=== PATIENT | male | born 2000 ===

== ENCOUNTER 2024-02-29 14:15 | Emergency (ER) | payer SELFPAY ==
[2024-02-29 14:21] VITALS: BP 131/67; PULSE 45; TEMP 37.2; O2SAT 100; BMI 29.3
--- NOTE | 2024-02-29 14:36 | US_ITS ---
[address] [address] Patient Name: ALMA GLASER MRN: [id number] date: 2000 Sex: M Assigned Patient Location: ER Current Patient Location: ER Accession/Order Number: [id number] Exam Date: 02/29/2024 14:40 Report Date: 02/29/2024 15:23 At the request of: FOSTER RLAPH Procedure: US scrotum doppler EXAM: US scrotum doppler HISTORY: Left testicular pain COMPARISON: None. TECHNIQUE: Grayscale, color and Doppler FINDINGS: The right testicle is normal in size, contour and echotexture measuring 4.5 x 2.9 x 2.2 cm. Normal color and Doppler flow. Punctate calcifications, testicular microlithiasis The right epididymis is normal No right hydrocele or varicocele. The left testicle is normal in size, contour and echotexture measuring 4.8 x 3.1 x 2.1 cm. Normal color and Doppler flow. Punctate calcifications, testicular microlithiasis The left epididymis is normal No left hydrocele or varicocele US/US scrotum doppler IMPRESSION: No acute abnormality. Electronically authenticated by: KENJI RODRIGUEZ Date: 02/29/2024 15:23
--- NOTE | 2024-02-29 14:37 | ED_ITS ---
HPI - Male Genitourinary General Chief complaint: Urogenital-Male Stated complaint: ABDOMINAL PAIN Time Seen by Provider: 02/29/24 14:36 Source: patient Mode of arrival: walk-in Limitations: no limitations History of Present Illness HPI Narrative: 23 year old male presents to the ED for left testicular pain. It has been intermittent for the past month. Reports intermittent swelling. Denies fever, chills, injury, dysuria, hematuria. Denies penile discharge, lesions, rash. Reports lower abdominal discomfort last night. Denies N/V/D. Related Data Home Medications ?Medication ?Instructions ?Recorded ?Confirmed No Known Home Medications 02/29/24 02/29/24 Allergies Allergy/AdvReac Type Severity Reaction Status Date / Time No Known Drug Allergies Allergy Verified 02/29/24 14:26 Review of Systems ROS Constitutional Denies: fever or chills Cardiovascular Denies: chest pain Respiratory Denies: shortness of breath Gastrointestinal Reports: abdominal pain; Denies: nausea, vomiting, diarrhea or constipation Genitourinary Reports: genital pain, testicular pain and scrotal swelling; Denies: painful urination, urinary frequency, urinary urgency, blood in urine, genital lesion, penile discharge, testicular mass or difficulty urinating Musculoskeletal Denies: back pain Integumentary/Breast Denies: rash, itching, sores or new lesion PFSH PFSH Medical History (Updated 02/29/24 @ 15:33 by Vikki Mederos) No pertinent past medical history ?Z78.9 - Other specified health status (ICD-10) Surgical History (Updated 02/29/24 @ 14:46 by Rolf Brizuela) No pertinent past surgical history ?Z78.9 - Other specified health status (ICD-10) Exam Narrative Exam Narrative: Rolf BRIDGES at bedside for patient support partner Constitutional Vital Signs, click to edit/add: Last Vital Signs Temp 98.9 F 02/29/24 14:21 Pulse 45 L 02/29/24 14:21 Resp 20 02/29/24 14:21 BP 131/67 02/29/24 14:21 Pulse Ox 100 02/29/24 14:21 Common normals: no apparent distress and oriented x3 General appearance: cooperative Eye Common normals: conjunctivae normal Neck & C-Spine Common normals: supple Respiratory Common normals: normal respiratory effort Effort & inspection: able to speak in complete sentences and symmetric chest movement Cardio Common normals: regular rate GI Common normals: soft to palpation and non-tender Course Vital Signs Vital signs: Vital Signs Temperature 98.9 F 02/29/24 14:21 Pulse Rate 45 L 02/29/24 14:21 Respiratory Rate 20 02/29/24 14:21 Blood Pressure 131/67 02/29/24 14:21 Pulse Oximetry 100 02/29/24 14:21 Temperature 98.9 F 02/29/24 14:21 Pulse Rate 45 L 02/29/24 14:21 Respiratory Rate 20 02/29/24 14:21 Blood Pressure 131/67 02/29/24 14:21 Pulse Oximetry 100 02/29/24 14:21 MDM - Male Genitourinary MDM Narrative Medical decision making narrative: Urinalysis was unremarkable. CBC and BMP were unremarkable. Ultrasound showed no acute findings. Uriprobes were pending. Findings were discussed. He was encouraged to follow up with urology for a recheck, further evaluation and treatment. Medical Records Attestation: I reviewed the patient's medical records. Lab Data Attestation: I reviewed the patient's lab results. Labs: Lab Results 02/29/24 02/29/24 Range/Units 14:35 14:42 WBC 9.0 (4.0-11.0) 10^3/uL RBC 5.37 (4.70-6.10) 10^6/uL Hgb 16.1 (14.0-18.0) g/dL Hct 45.7 (42.0-54.0) % MCV 85.1 (80.0-94.0) fL MCH 30.0 (25.9-34.0) pg MCHC 35.2 (29.9-35.2) g/dL RDW 12.9 (11.0-15.0) % Plt Count 223 (150-450) 10^3/uL MPV 11.3 (9.5-13.5) fL Neut % (Auto) 45.3 (43.0-75.0) % Lymph % (Auto) 40.3 (20.5-60.0) % Pershing % (Auto) 10.2 (1.7-12.0) % Eos % (Auto) 3.5 (0.9-7.0) % Baso % (Auto) 0.6 (0.2-2.0) % Neut # (Auto) 4.1 (1.4-6.5) 10^3/uL Lymph # (Auto) 3.6 (1.2-3.8) 10^3/uL Pershing # (Auto) 0.9 H (0.3-0.8) 10^3/uL Eos # (Auto) 0.3 (0.0-0.7) 10^3/uL Baso # (Auto) 0.1 (0.0-0.1) 10^3/uL Abs Immat Gran (auto) 0.01 (0.00-0.03) 10^3/uL Imm/Tot Granulo (auto) 0.1 (0.0-0.5) % Sodium 138 (136-145) mmol/L Potassium 3.5 (3.5-5.1) mmol/L Chloride 102 (98-107) mmol/L Carbon Dioxide 26.1 (21.0-32.0) mmol/L Anion Gap 13.4 BUN 21.0 H (7.0-18.0) mg/dL Creatinine 0.91 (0.70-1.30) mg/dL Est GFR ( Amer) >60 (>=60 mL/min/1.73m^2) Est GFR (Non-Af Amer) >60 (>=60 mL/min/1.73m^2) BUN/Creatinine Ratio 23.1 Glucose 106 (74-106) mg/dL Calcium 9.3 (8.5-10.1) mg/dL Urine Color Lt. yellow (YELLOW) Urine Clarity Clear (CLEAR) Urine pH 6.0 (5.0-9.0) Ur Specific Gifford 1.025 (1.005-1.025) Urine Protein Negative (NEG/TRACE) mg/dL Urine Glucose (UA) Negative (NEGATIVE) mg/dL Urine Ketones Negative (NEGATIVE) mg/dL Urine Occult Blood Negative (NEGATIVE) Urine Nitrite Negative (NEGATIVE) Urine Bilirubin Negative (NEGATIVE) Urine Urobilinogen 0.2 (0.2-1.0) EU/dL Ur Leukocyte Esterase Negative (NEGATIVE) Imaging Data US: Attestation: I have reviewed the pertinent imaging results. Radiologist's impression: ITS Impressions Scrotum Ultrasound 02/29/24 14:36 IMPRESSION: No acute abnormality. Electronically authenticated by: ROLF RODRIGUEZ Date: 02/29/2024 15:23 Discharge Plan Discharge Chief Complaint: Urogenital-Male Clinical Impression: Left testicular pain Patient Disposition: Home, Self-Care Time of Disposition Decision: 15:33 Condition: Good Mode of Transportation: Private Vehicle Prescriptions / Home Meds: No Action No Known Home Medications Print Language: Icelandic Instructions: Testicle Pain (ED) Additional Instructions: Return to the ER for worsening symptoms. Referrals: Physician,Non-Staff, [Primary Care Provider] - 1 week Rodrigue Henley MD [Physician] - 1 week Discharge Date/Time: 02/29/24 15:50
[2024-02-29 14:48] LABS: Basophils Absolute Auto 0.1 10^3/uL (0.0-0.1); Basophils Percent Auto 0.6 % (0.2-2.0); Eosinophils Absolute Auto 0.3 10^3/uL (0.0-0.7); Eosinophils Percent Auto 3.5 % (0.9-7.0); Hematocrit 45.7 % (42.0-54.0); Hemoglobin 16.1 g/dL (14.0-18.0); Immature Granulocytes Abs Auto 0.01 10^3/uL (0.00-0.03); Immature Granulocytes Pct Auto 0.1 % (0.0-0.5); Lymphocytes Absolute Auto 3.6 10^3/uL (1.2-3.8); Lymphocytes Percent Auto 40.3 % (20.5-60.0); Mean Corpuscular HGB Conc 35.2 g/dL (29.9-35.2); Mean Corpuscular Volume 85.1 fL (80.0-94.0); Mean Platelet Volume 11.3 fL (9.5-13.5); Monocytes Absolute Auto 0.9 10^3/uL (0.3-0.8); Monocytes Percent Auto 10.2 % (1.7-12.0); Neutrophils Absolute Auto 4.1 10^3/uL (1.4-6.5); Neutrophils Percent Auto 45.3 % (43.0-75.0); Platelet Count 223 10^3/uL (150-450); Red Blood Count 5.37 10^6/uL (4.70-6.10); Red Cell Distribution Width 12.9 % (11.0-15.0)
[2024-02-29 14:52] LABS: Bilirubin Urine NEGATIVE (NEGATIVE); Blood Urine NEGATIVE (NEGATIVE); Clarity Urine CLEAR (CLEAR); Color Urine LT. YELLOW (YELLOW); Glucose Urine UA NEGATIVE (NEGATIVE); Ketones Urine NEGATIVE (NEGATIVE); Leukocyte Esterase Urine NEGATIVE (NEGATIVE); Nitrite Urine NEGATIVE (NEGATIVE); Protein Urine NEGATIVE (NEG/TRACE); Specific Gravity Urine 1.025 (1.005-1.025); Urobilinogen Urine 0.2 EU/dL (0.2-1.0)
[2024-02-29 14:54] LABS: Urine Microscopic Indicated NO
[2024-02-29 14:58] LABS: Anion Gap 13.4; BUN Creatinine Ratio 23.1; Calcium 9.3 mg/dL (8.5-10.1); Carbon Dioxide 26.1 mmol/L (21.0-32.0); Chloride 102 mmol/L (98-107); Estimated GFR (African America >60 (>=60 mL/min/1.73m^2); Estimated GFR (Non-African Ame >60 (>=60 mL/min/1.73m^2); Glucose 106 mg/dL (74-106); Potassium 3.5 mmol/L (3.5-5.1); Sodium 138 mmol/L (136-145)
[2024-03-01 22:06] LABS: Neisseria gonorrhoeae, NAA Negative (Negative)
== END 2024-02-29 15:50 | disposition home or self-care (01) ==
PROVIDERS: Nurse Practitioner Family; Emergency Provider Emergency Medicine
DX: N50.812 Left testicular pain (principal); R10.30 Lower abdominal pain, unspecified
CPT/HCPCS: 36415; 76870; 80048; 81003; 85025; 87491; 87591; 93976; 99285